=== PATIENT | male | born 1990 | race Caucasian/White ===

== ENCOUNTER 2023-02-21 09:56 | Emergency (ER) | payer MEDICAID, SELFPAY ==
[2023-02-21 10:05] VITALS: BP 121/84; PULSE 72; RESP 16; TEMP 36.6; O2SAT 98; BMI 30.5
--- NOTE | 2023-02-21 10:29 | ED_ITS ---
HPI - General Adult General Time Seen by Provider: 10:29 Date Seen: 02/21/23 Chief complaint: Dental/Oral/Mouth Injury/Pain Stated complaint: Tooth infection Time Seen by Provider: 02/21/23 10:29 Source: patient and RN notes reviewed Mode of arrival: ambulatory Limitations: no limitations History of Present Illness HPI narrative: Patient is a 33-year-old male with known loss of dental filling in his right upper posterior molar. Has been working with his dentist, does need to have the tooth pulled per the dentist's recommendations. He cannot get that done until April 03, is on the cancellation schedule. He has a history of drinking issues, admits he has been drinking more to try to stop the pain. He has been doing some Tylenol ibuprofen. The tooth has been becoming more painful. He denies any fevers. He is wondering if he can get an antibiotic to try to see if that might help. He has no allergies. We did briefly review other dental centers, believe there is an emergency dental center in [place], could try to get into the [facility], did review the [id number] dental packing that may help. Related Data Home Medications Medication Instructions Recorded Confirmed hydroxyzine HCl 25 mg tablet 25 mg PO DAILY PRN insomnia 02/21/23 02/21/23 sertraline 50 mg tablet mg PO 02/21/23 Previous Rx's Medication Instructions Recorded ketorolac 10 mg tablet 10 mg PO TID PRN pain 5 days #20 02/21/23 tabs penicillin V potassium 500 mg 500 mg PO TID #30 tabs 02/21/23 tablet Allergies Allergy/AdvReac Type Severity Reaction Status Date / Time No Known Drug Allergies Allergy Verified 02/21/23 10:07 Review of Systems Narrative: As per HPI. PFS PFS Social History Smoking Status: Current every day smoker What tobacco products do you use: cigarettes How often do you have a drink containing alcohol: 4 or more times a week How many standard drinks containing alcohol do you have on a typical day: 7 to 9 How often do you have six or more drinks on one occasion: Daily or almost daily AUDIT-C Alcohol total score: 11 Non-prescribed substance use: marijuana (any form) Exam Const: Vital Signs, click to edit/add: Vital Signs - 24 hr 02/21/23 10:05 Temperature 97.8 F Pulse Rate [Pulse Oximeter] 72 Respiratory Rate 16 Blood Pressure [Ri ght Upper Arm] 121/84 Pulse Oximetry 98 Oxygen Delivery Me thod Room Air 33-year-old male ambulatory in the ED of his own accord, he is alert, interactive, very pleasant, no apparent distress. Face is atraumatic, no facial changes or swelling noted. Pupils are equal round, sclera clear. Oropharynx without any significant mucosal abnormalities, tongue is normal. The right posterior upper molar has a big cavitary area in it, this is where he states the filling came out of. He is tender over this tooth. I do not appreciate any significant mucosal abnormalities around this tooth currently. No submental adenopathy, no neck adenopathy or masses. CV regular rate and rhythm, no murmur. Documenting provider has reviewed patient's vital signs: yes Course Vital Signs Vital signs: Initial Vital Signs Temperature 97.8 F 02/21/23 10:05 Temperature Source Temporal Artery Scan 02/21/23 10:05 Pulse Rate 72 02/21/23 10:05 Respiratory Rate 16 02/21/23 10:05 Blood Pressure 121/84 02/21/23 10:05 Blood Pressure Mean 96 02/21/23 10:05 Blood Pressure Position Sitting 02/21/23 10:05 Pulse Oximetry 98 02/21/23 10:05 Oxygen Delivery Method Room Air 02/21/23 10:05 Vital Signs Temperature 97.8 F 02/21/23 10:05 Pulse Rate 72 02/21/23 10:05 Respiratory Rate 16 02/21/23 10:05 Blood Pressure 121/84 02/21/23 10:05 Pulse Oximetry 98 02/21/23 10:05 Oxygen Delivery Method Room Air 02/21/23 10:05 Temperature 97.8 F 02/21/23 10:05 Pulse Rate 72 02/21/23 10:05 Respiratory Rate 16 02/21/23 10:05 Blood Pressure 121/84 02/21/23 10:05 Pulse Oximetry 98 02/21/23 10:05 Oxygen Delivery Method Room Air 02/21/23 10:05 Critical Care Time Critical Care Time Critical Care Time: No Discharge Plan Discharge Clinical Impression: Pain, dental Patient Disposition: Home, Self-Care Condition: Stable Instructions: Toothache (ED) Additional Instructions: Continue to work with your dentist to try to get definitive care for this tooth. We will initiate antibiotics, take as prescribed. This will help if there is any component of infection or potential abscess developing. Tylenol 1000 mg up to 4 times a day can be taken for baseline pain management. I am writing for Toradol, do not use ibuprofen with this. Once you are done with the Toradol, can go back to ibuprofen per bottle directions. Toradol and ibuprofen are both from the class of medications called NSAIDs. Activity Level: Activity as Tolerated Discharge Diet: Regular Prescriptions: New penicillin V potassium 500 mg tablet 500 mg PO TID Qty: 30 0RF ketorolac 10 mg tablet 10 mg PO TID PRN (Reason: pain) 5 Days Qty: 20 0RF No Action hydroxyzine HCl 25 mg tablet 25 mg PO DAILY PRN (Reason: insomnia) sertraline 50 mg tablet PO Follow Up/Referrals: Provider,Not a Local [Primary Care Provider] - Stand Alone Forms: [employer] Info Instructions
== END 2023-02-21 11:07 | disposition home or self-care (01) ==
LOC: ED 10:50
PROVIDERS: Emergency Provider Family Medicine; PCP Family Medicine
DX: K08.89 Other specified disorders of teeth and supporting structures (principal)
CPT/HCPCS: 99283